=== PATIENT | female | born 1945 | race Caucasian/White ===

== ENCOUNTER 2016-08-16 09:24 | Emergency (ER) | payer MEDICARE, BC, OTHER ==
[2016-08-16 09:51] VITALS: BP 141/76
--- NOTE | 2016-08-16 09:57 | UC ---
Abdominal Pain Female HPI - History of Current Complaint Stated Complaint: EYE PAIN,RIB PAIN,HARD ABD Time Seen by Provider: 08/16/16 09:49 PMH/Surg Hx/FS Hx/Imm Hx Endocrine History Of: Reports: Diabetes - po meds - Surgical History Surgical History: Yes Surgery Procedure, Year, and Place: abdominal hernia 2014 - Social History Alcohol Use: None Substance Use Type: None Smoking Status (MU): Never Smoked Tobacco Physical Exam Vital Signs: Initial Vital Signs Temp 98.4 F 08/16/16 09:28 Pulse 82 08/16/16 09:28 Resp 18 08/16/16 09:28 BP 141/76 08/16/16 09:28 Pulse Ox 100 08/16/16 09:28
--- NOTE | 2016-08-16 10:11 | UC ---
UC General HPI - HPI Summary HPI Summary: The patient comes in today for: 1. Generalized weakness, right lower anterior rib pain, and "they told me to come in to be seen." Onset: Weakness for about 4-5 days. Palliative/provocative: Pressing on her ribs makes the pain worse. Quality: Sharp, sore. Region: Right anterior, inferior rib margin. Severity: AT rest--0/10. When getting up, the pain and go to 5/10 Time: Comes and goes depending on activity. Associated symptoms: Fevers: None. ABdominal pain: cramping which comes and goes. 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 Baires through [facility] last seen in October of last year. She lives in [place] and fell twice in June and on 's of this year. She did not get physical therapy there because she wanted to get her physical therapy in [place] so came up here to this area (she lives in [place], [place]) for the physical therapy (she lives up here during the summer), on July 27. While at her 2nd physical therapy session today, the physical therapist did not think that she "looked good" and asked how she was feeling. The patient states that she has generalized weakness/exhaustion, and a larger abdomen, and anterior right lower rib pain. They told her at physical therapy to come to see us. Her urine is "dark brown yellow." She states that she had this symptom complex before and was "treated with a lot of antibiotics." From the sound of it, she thinks it was for h. pylori. But, other than this, she does not remember. * - History of Current Complaint Chief Complaint: UCAbdominalPain Stated Complaint: EYE PAIN,RIB PAIN,HARD ABD Time Seen by Provider: 08/16/16 09:49 Hx Obtained From: Patient - Allergy/Home Medications Home Medications: Home Medications Atorvastatin* [Lipitor*] 40 mg PO 1700 08/16/16 [History Confirmed 08/16/16] Bisoprolol Fumarate [Bisoprolol Fumarate-] 5 mg PO DAILY 08/16/16 [History Confirmed 08/16/16] Cetirizine* [ZyrTEC 10 MG TAB*] 10 mg PO BID 08/16/16 [History Confirmed ] Duloxetine HCl 60 mg PO DAILY 08/16/16 [History Confirmed 08/16/16] Gabapentin CAP(*) [Neurontin 300 CAP(*)] 300 mg PO BID 08/16/16 [History Confirmed 08/16/16] Glycerin (Laxative) [Glycerin Adult] 2 gm TN DAILY 08/16/16 [History Confirmed 08/16/16] Levothyroxine TAB* [Synthroid TAB*] 100 mcg PO DAILY 08/16/16 [History Confirmed 08/16/16] Nadolol TAB* [Corgard TAB*] 20 mg PO DAILY 08/16/16 [History Confirmed 08/16/16] Pantoprazole Sodium [Protonix] 20 mg PO BID 08/16/16 [History Confirmed 08/16/16 ] Perindopril Erbumine 2 mg PO DAILY 08/16/16 [History Confirmed 08/16/16] Rabeprazole Sodium 20 mg PO DAILY 08/16/16 [History Confirmed 08/16/16] Sitagliptin Phosphate [Januvia] 100 mg PO DAILY 08/16/16 [History Confirmed ] metFORMIN* [Glucophage 500 MG TAB *] 500 mg PO BID 08/16/16 [History Confirmed 08/16/16] traZODone TAB* [Desyrel TAB*] 100 mg PO BEDTIME 08/16/16 [History Confirmed ] PMH/Surg Hx/FS Hx/Imm Hx Previously Healthy: No - Restless legs syndrome, esophageal varices. Endocrine History Of: Reports: Diabetes - po meds, Thyroid Disease, Hypothyroidism, Dyslipidemia Cardiovascular History Of: Reports: Cardiac Disorders - "flutters", Hypertension Denies: Pacemaker/ICD, Myocardial Infarction, Congestive Heart Failure, Atrial Fibrillation, Deep Vein Thrombosis, Bleeding Disorders Respiratory History Of: Denies: COPD, Asthma, Bronchitis, Pneumonia, Pulmonary Embolism GI/ History Of: Reports: Gastroesophageal Reflux, Gastrointestinal Bleed - History of GI bleeding later thought it to be from esophageal varices. Denies: Ulcer, Gall Bladder Disease, Kidney Stones, Diverticulitis, Renal Disease, Urosepsis Neurological History Of: Denies: TIA, CVA, Dementia, Seizures, Migraine Psychological History Of: Reports: Depression Denies: Anxiety, Bipolar Disorder, Schizophrenia, Post Traumatic Stress Disorder Cancer History Of: Denies: Lung Cancer, Colorectal Cancer, Breast Cancer, Prostate Cancer, Cervical Cancer Other History Of: Negative For: HIV, Hepatitis B, Hepatitis C - She states that she was " tested for all three of them" and they were (-)., Anticoagulant Therapy - Surgical History Surgical History: Yes Surgery Procedure, Year, and Place: abdominal hernia 2014 - Family History Known Family History: Positive: Cardiac Disease, Hypertension - Social History Occupation: Unemployed, Retired Alcohol Use: None Substance Use Type: None Smoking Status (MU): Never Smoked Tobacco Review of Systems Constitutional: Negative Skin: Negative Eyes: Negative ENT: Negative Respiratory: Negative Cardiovascular: Chest Pain - Right lower anterior rib margin. Gastrointestinal: Abdominal Pain Genitourinary: Negative All Other Systems Reviewed And Are Negative: Yes Physical Exam Triage Information Reviewed: Yes Appearance: Well-Appearing, No Pain Distress - At rest. Vital Signs: Initial Vital Signs Temp 98.4 F 08/16/16 09:28 Pulse 82 08/16/16 09:28 Resp 18 08/16/16 09:28 BP 141/76 08/16/16 09:28 Pulse Ox 100 08/16/16 09:28 Vital Signs Reviewed: Yes Eyes: Positive: Conjunctiva Clear, Other: - In sunlight, I did not see marked jaundice.. Negative: Discharge ENT: Positive: Hearing grossly normal. Negative: Pharyngeal erythema, Nasal congestion, Nasal drainage, TM bulging, TM dull, TM red, Tonsillar swelling, Tonsillar exudate Dental: Negative: Gross Decay/Caries @, Dental Fracture @ Neck: Positive: Supple, Nontender, No Lymphadenopathy. Negative: Nuchal Rigidity Respiratory: Positive: Lungs clear, No respiratory distress, No accessory muscle use. Negative: Crackles, Wheezing Cardiovascular: Positive: RRR, No Murmur Abdomen Description: Positive: Nontender, Hepatomegaly, Splenomegaly, Other: - Shifting dullness was not tested due to right lower anterior rib pain. But she had central tympany. Musculoskeletal: Positive: Strength Intact, ROM Intact Neurological: Positive: Alert, Muscle Tone Normal Psychological: Positive: Age Appropriate Behavior, Consolable Skin: Negative: rashes, breakdown Course/Dx - Course Course Of Treatment: Patient was told that with her new symptoms in light of her cryptogenic cirrhosis, my recommendation was to go to the ER at [facility]. She agreed. - Differential Dx - Multi-Symptom Provider Diagnoses: Cryptogenic cirrhosis with worsening ascities. Right lower anterior rib fracture. - Physician Notifications Discussed Patient Care With: Ms. Yeni Kendrick at [facility]. Time Discussed With Above Provider: 10:30 Discharge - Discharge Plan Condition: Stable Disposition: AGAINST MEDICAL ADVICE
== END 2016-08-16 10:30 | disposition left against medical advice (07) ==
LOC: UCCORT 09:24
DX: K74.69 Other cirrhosis of liver (principal); R18.8 Other ascites; S22.31XA Fracture of one rib, right side, initial encounter for closed fracture; X58.XXXA Exposure to other specified factors, initial encounter; Y93.9 Activity, unspecified; Y92.9 Unspecified place or not applicable; E11.9 Type 2 diabetes mellitus without complications; Z79.84 Long term (current) use of oral hypoglycemic drugs; E03.9 Hypothyroidism, unspecified; E78.5 Hyperlipidemia, unspecified; I10 Essential (primary) hypertension; K21.9 Gastro-esophageal reflux disease without esophagitis; F32.9 Major depressive disorder, single episode, unspecified
CPT/HCPCS: 99203; G0463